=== PATIENT | female | born 1985 ===

== ENCOUNTER 2016-04-26 21:21 | Emergency (ER) | payer SELFPAY ==
[~2016-04-26] VITALS: Ht 170.2 cm; Wt 54.5 kg
[2016-04-26 21:22] VITALS: BP 117/58; PULSE 132; RESP 16; TEMP 98; O2SAT 97
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
== END 2016-04-26 22:08 | disposition left against medical advice (07) ==
LOC: NEPB 21:21
DX: G89.29 Other chronic pain (principal); M54.9 Dorsalgia, unspecified
CPT/HCPCS: 99281